=== PATIENT | male | born 1940 | race Caucasian/White ===

== ENCOUNTER → 2018-09-20 11:04 | Outpatient (CLI) | payer MEDICARE, SELFPAY ==
[2018-09-20 11:54] LABS: BUN Creatinine Ratio 14.7 (6-22); Blood Urea Nitrogen 25 mg/dL (9-20); Calcium 9.1 mg/dL (8.4-10.2); Carbon Dioxide 25 mmol/L (22-32); Chloride 108 mmol/L (98-107); Cholesterol 163 mg/dL (140-199); Estimated Glomerular Filt Rate 39.2 mL/min (>60); Glucose 91 mg/dL (80-110); HDL Cholesterol 54 mg/dL (40-60); HEMOLYSIS < 15 (0-50); LDL Cholesterol Calculated 94 mg/dL (<100); Sodium 142 mmol/L (137-145); Triglycerides 73 mg/dL (35-150)
[2018-09-21 14:25] LABS: Parathyroid Hormone Int 59 pg/mL (14-64)
== END ==
PROVIDERS: PCP Internal Medicine; Visit Provider Internal Medicine
DX: I10 Essential (primary) hypertension (principal); E21.0 Primary hyperparathyroidism; Z00.00 Encounter for general adult medical examination without abnormal findings
CPT/HCPCS: 36415; 80048; 80061; 83970

== ENCOUNTER → 2019-10-06 14:58 | Outpatient (ROUT) | payer MEDICARE, SELFPAY ==
[2019-10-06 15:24] LABS: BUN Creatinine Ratio 15.3 (6-22); Blood Urea Nitrogen 23 mg/dL (9-20); Calcium 9.4 mg/dL (8.4-10.2); Carbon Dioxide 27 mmol/L (22-32); Chloride 103 mmol/L (98-107); Estimated Glomerular Filt Rate 45.1 mL/min (>60); Glucose 80 mg/dL (80-110); HEMOLYSIS < 15 (0-50); Potassium 4.7 mmol/L (3.4-5.1); Sodium 139 mmol/L (137-145)
== END ==
PROVIDERS: PCP Internal Medicine; Visit Provider Internal Medicine
DX: I10 Essential (primary) hypertension (principal)
CPT/HCPCS: 80048

== ENCOUNTER → 2019-11-03 14:38 | Outpatient (CLI) | payer MEDICARE, SELFPAY ==
--- NOTE | 2019-11-03 | DI.RAD.S_ITS ---
PROCEDURE: XR HIP W PEL IF DONE LT 2V INDICATIONS: S/P LEFT HIP ARTHROPLASTY FOLLOW UP TECHNIQUE: AP pelvis with lateral view(s) of the left hip(s). COMPARISON: [facility] JAVAD Soares, XR PELVIS WITH LATERAL HIP LEFT, 12/15/2017, 13:31. [facility] JAVAD Soares, XR FEMUR 2+ VIEWS LEFT, 12/15/2017, 13:36. FINDINGS: Bones: No fractures or dislocations. Pelvic ring appears intact. No suspicious bony lesions. There is elevation left hip arthroplasty with prosthesis in anatomic alignment. Old healed internally fixed left femoral shaft fracture is noted. There is discectomy and fusion at L4-L5. Soft tissues: The visualized bowel gas pattern is normal. No suspicious soft tissue calcifications. IMPRESSION: 1. Revision left hip arthroplasty with prosthesis in anatomic alignment. 2. Old healed femoral shaft fracture with internal fixation. Dictated by: Stephen Osuna M.D. on 11/03/2019 at 17:39 Approved by: Stephen Osuna M.D. on 11/03/2019 at 17:42
== END ==
PROVIDERS: PCP Internal Medicine
DX: Z09 Encounter for follow-up examination after completed treatment for conditions other than malignant neoplasm (principal); Z96.642 Presence of left artificial hip joint
CPT/HCPCS: 73502

== ENCOUNTER → 2019-11-09 10:35 | Outpatient (CLI) | payer MEDICARE, SELFPAY ==
[2019-11-09 12:04] LABS: Erythrocyte Sedimentation Rate 35 MM/HR (0-15)
[2019-11-09 12:29] LABS: C-Reactive Protein Quant 6.3 mg/dL (<1.0)
== END ==
PROVIDERS: PCP Internal Medicine; Referring Provider Orthopaedic Surgery; Visit Provider Orthopaedic Surgery
DX: Z96.649 Presence of unspecified artificial hip joint (principal); V43.64XA Car passenger injured in collision with van in traffic accident, initial encounter
CPT/HCPCS: 36415; 85651; 86140

== ENCOUNTER → 2019-11-17 11:40 | Outpatient (CLI) | payer MEDICARE, SELFPAY ==
[2019-11-17 13:11] LABS: C-Reactive Protein Quant 2.2 mg/dL (<1.0)
[2019-11-17 13:56] LABS: Erythrocyte Sedimentation Rate 46 MM/HR (0-15)
== END ==
PROVIDERS: PCP Internal Medicine; Referring Provider Orthopaedic Surgery; Visit Provider Orthopaedic Surgery
DX: Z96.649 Presence of unspecified artificial hip joint (principal)
CPT/HCPCS: 36415; 85651; 86140

== ENCOUNTER → 2019-11-20 08:28 | Outpatient (CLI) | payer MEDICARE, SELFPAY ==
--- NOTE | 2019-11-20 | DI.MRI.S_ITS ---
PROCEDURE: MR LUMBAR SPINE WO CON INDICATIONS: Low back pain TECHNIQUE: Noncontrast sagittal T1 spin echo and T2 fast echo, sagittal STIR, axial T1 and T2 fast spin echo through the lumbar spine. In cases with scoliosis, additional coronal T2 fast spin echo may be performed. COMPARISON: [facility], , L-SPINE WITHOUT CONTRAST, 09/30/2016, 12:42. FINDINGS: Image quality: Excellent. Alignment and Curvature: Interval multilevel posterior lateral travis and pedicle screw fixation spanning L3-L5 with bilateral pedicle screws in place at all levels and interbody fusion material. Trace degenerative anterolisthesis of L5 on S1. Mild stable degenerative retrolisthesis of L2 on L3 measuring 6 mm. Bone Marrow: Marrow is of normal overall signal. No acute vertebral body compression fractures. Spinal Cord: Conus medullaris terminates at the top of L1 level. Visualized cord demonstrates normal signal and size. Paraspinous Soft Tissues: No paravertebral masses. T12-L1: No canal stenosis or foraminal stenosis. L1-L2: Mild disc height loss. Mild disc bulge. Mild facet hypertrophy. No canal stenosis. Mild to moderate right foraminal stenosis. L2-L3: Unchanged. Mild retrolisthesis of L2 on L3. Minimal disc bulge. Facet and ligament hypertrophy. Mild to moderate canal stenosis. Mild to moderate right foraminal narrowing and mild left foraminal narrowing. L3-L4: Left laminectomy and posterior lateral fusion. Left laminectomy appears to be widened compared to the previous study. Resolution of canal stenosis. Mild right foraminal narrowing. L4-L5: Left laminectomy and posterior lateral fusion. Left laminectomy appears to be widened compared to the previous study. No canal stenosis. Moderate right foraminal narrowing with flattening deformity on the exiting right L4 nerve root. No left foraminal narrowing. L5-S1: Bilateral facet hypertrophy. No canal stenosis or foraminal stenosis. IMPRESSION: 1. Interval L3-L5 fusion with resolution of canal stenosis at L3-L4 and L4-L5. 2. Unchanged mild to moderate canal stenosis at L2-L3. 3. Moderate right foraminal narrowing at L4-L5. Dictated by: Dano Phan M.D. on 11/21/2019 at 9:23 Approved by: Dano Phan M.D. on 11/21/2019 at 9:33
== END ==
PROVIDERS: PCP Internal Medicine; Referring Provider Internal Medicine; Visit Provider Orthopaedic Surgery
DX: M54.5 Low back pain (principal); M48.061 Spinal stenosis, lumbar region without neurogenic claudication; Z98.1 Arthrodesis status
CPT/HCPCS: 72148

== ENCOUNTER → 2020-04-04 10:28 | Outpatient (CLI) | payer MEDICARE, SELFPAY ==
[2020-04-04 11:49] LABS: BUN Creatinine Ratio 15.4 (6-22); Blood Urea Nitrogen 23 mg/dL (9-20); Carbon Dioxide 27 mmol/L (22-32); Chloride 106 mmol/L (98-107); Cholesterol 152 mg/dL (140-199); Estimated Glomerular Filt Rate 45.5 mL/min (>60); Glucose 88 mg/dL (80-110); HDL Cholesterol 39 mg/dL (40-60); HEMOLYSIS < 15 (0-50); LDL Cholesterol Calculated 96 mg/dL (<100); Sodium 139 mmol/L (137-145); Triglycerides 83 mg/dL (35-150)
[2020-04-05 08:12] LABS: PSA Free % 46.7 % (.); PSA, Total 0.9 ng/mL (0.0-4.0)
== END ==
PROVIDERS: PCP Internal Medicine; Referring Provider Internal Medicine; Visit Provider Internal Medicine
DX: Z12.5 Encounter for screening for malignant neoplasm of prostate (principal); I10 Essential (primary) hypertension; E78.5 Hyperlipidemia, unspecified
CPT/HCPCS: 36415; 80048; 80061; 84153; 84154

== ENCOUNTER → 2020-10-11 12:30 | Outpatient (CLI) | payer MEDICARE, SELFPAY ==
[2020-10-11] MEDS: COVID-19 VACC #1, MRNA(MOD) 100 MCG/0.5 ML VIAL IM (12:41)
== END ==
PROVIDERS: PCP Internal Medicine; Visit Provider Internal Medicine
DX: Z23 Encounter for immunization (principal)
CPT/HCPCS: 0011A; 91301

== ENCOUNTER → 2020-11-08 12:10 | Outpatient (CLI) | payer MEDICARE, SELFPAY ==
[2020-11-08] MEDS: COVID-19 VACC #2, MRNA(MOD) 100 MCG/0.5 ML VIAL IM (12:19)
== END ==
PROVIDERS: PCP Internal Medicine; Visit Provider Internal Medicine
DX: Z23 Encounter for immunization (principal)
CPT/HCPCS: 0012A; 91301

== ENCOUNTER 2022-12-18 19:40 | Emergency (ER) | payer MEDICARE, SELFPAY ==
[2022-12-18] VITALS (16 sets, daily range): BP systolic 177–222; BP diastolic 89–114; PULSE 56–67; RESP 14–29; TEMP 35.9; O2SAT 97–99; BMI 25.1
--- NOTE | 2022-12-18 22:57 | ED_ITS ---
HPI - General Adult General Chief complaint: Hypertension Stated complaint: elevated BP Time Seen by Provider: 12/18/22 22:14 Source: patient and EMS Mode of arrival: EMS History of Present Illness HPI narrative: 82-year-old gentleman with a history of controlled hypertension and kidney cancer post nephrectomycomes in with concerns for asymptomatic hypertension. He states that he had some moderate stomach cramping earlier this evening, took some Tums the stomach ache resolved. after a bowel movement in the emergency department the stomach cramps are completely gone. While he was having the cramping, he took his blood pressure is usual and noted that it was elevated at 2 100/100 with no chest pain, dyspnea, nausea, vomiting, acute neurologic signs. Comes in for further evaluation of his blood pressure. Denies chest pa in, palpitations, dyspnea, orthopnea, headache, paresthesias beyond his baseline left lower extremity paresthesia after spinal surgery. Related Data Home Medications Medication Instructions Recorded Confirmed acetaminophen 500 mg tablet 500 mg PO Q6HP PRN ##0 01/19/13 cholecalciferol (vitamin D3) 50 2,000 unit PO QDAY ##0 04/13/17 mcg (2,000 unit) capsule (Vitamin D3) cyclobenzaprine 10 mg tablet 10 mg PO HS PRN ##0 04/13/17 omega 4-edv-sct-fish oil 1,000 mg mg PO QDAY ##0 04/13/17 (120 mg-180 mg) capsule (Fish Oil) tramadol 50 mg tablet 50 mg PO PRN ##0 04/13/17 omeprazole 20 mg capsule,delayed 20 mg PO PRN PRN ##0 04/22/17 release Previous Rx's Medication Instructions Recorded hydroxyzine pamoate 25 mg capsule 1 - 2 cap PO Q6HP PRN #40 caps 04/25/17 (Vistaril) oxycodone 5 mg tablet 1 - 2 tab PO Q4HP PRN #60 tabs 04/25/17 polyethylene glycol 3350 17 gram 17 gm PO BIDP PRN ##1 04/25/17 oral powder packet (Miralax) Review of Systems Review of Systems Narrative: Pertinent positive and negative findings as per HPI Patient History Medical History Hypertension Renal cell cancer Spinal stenosis Social History Smoking Status: Never smoker Smoking Status: Never smoker Substance Use Type: does not use Exam Initial Vital Signs Initial Vital Signs: Vital Signs Temperature 96.6 F L 12/18/22 19:40 Pulse Rate 58 L 12/18/22 19:40 Respiratory Rate 14 12/18/22 19:40 Blood Pressure 212/100 H 12/18/22 19:40 Pulse Oximetry 97 12/18/22 19:40 Oxygen Delivery Method Room Air 12/18/22 19:40 General: Healthy appearing, in no acute distress. Able to give a complete and coherent history. Well-nourished well-developed HEENT: Moist mucous membranes, normal sclera with reactive pupils, Neck: No JVD, supple Respiratory: Lungs are clear to auscultation, no wheezing no rales no rhonchi. Full and symmetrical air movement Cardiac: Regular rate and rhythm no murmurs no bruits Abdomen: Soft, nontender, good bowel tones, no flank pain Skin: Warm and dry, multiple actinic keratoses Neurologic: Grossly neurologically intact with no obvious asymmetries or abnormalities Extremities: No trauma, well perfused Psych: Cooperative, appropriate insight and affect Course Orders Ordered: ED Orders 12/18/22 20:02 EKG-12 Lead Stat Vital Signs Vital signs: Vital Signs - 8 hr 12/18/22 19:40 12/18/22 19:43 12/18/22 19:44 Temperature 96.6 F L Pulse Rate 58 L 62 Respiratory Rate 14 Blood Pressure 212/100 H 212/100 H Pulse Oximetry 97 97 Oxygen Delivery Method Room Air 12/18/22 19:44 12/18/22 20:00 12/18/22 20:01 Temperature Pulse Rate 61 57 L Respiratory Rate Blood Pressure 186/92 H Pulse Oximetry 98 97 Oxygen Delivery Method 12/18/22 20:01 12/18/22 20:30 12/18/22 20:30 Temperature Pulse Rate 58 L 58 L Respiratory Rate Blood Pressure 182/93 H Pulse Oximetry 97 97 Oxygen Delivery Method 12/18/22 21:00 12/18/22 21:00 12/18/22 21:30 Temperature Pulse Rate 56 L Respiratory Rate Blood Pressure 188/91 H 177/89 H Pulse Oximetry 98 Oxygen Delivery Method 12/18/22 21:30 Temperature Pulse Rate 56 L Respiratory Rate Blood Pressure Pulse Oximetry 98 Oxygen Delivery Method Medical Decision Making MDM Narrative Medical decision making narrative: CC:Presents with asymptomatic hypertension this is an acute finding, uncertain prognosis Complicating co-morbidities: hypertension usually moderate controlled with Coreg at 6.25 BID Data collected from: patient, Social determinants of health that may influence the patients condition: primary caregiver for his with for us of dementia Medical records reviewed: medical records are not available for review Differential considered: primary hypertension, secondary hypertension related to abdominal cramping, hypertensive crisis, heart failure, acute coronary syndrome, stroke or TIA Exam documented above, pertinent findings include: entirely benign exam. Abdominal cramping has entirely resolved after a bowel movement. EKG today shows sinus rhythm at a rate of 63. Right axis deviation at 165. No significant ischemic findings are appreciated Discussion: 82-year-old gentleman with abdominal cramping that likely was related to need to have a bowel movement since resolved. While he was hurting did take his blood pressure noticed that it was elevated. It has remained somewhat elevated in the emergency department but he has not taken his evening Coreg. Typically blood pressures are in the 150 systolic range. Does have a follow-up appointment with his primary care doctor next week. At this time there is no evidence of any significant pathology. We discussed the importance of not dramatically changing blood pressures in the emergency department. Was given 12.5 mg, a double dose, of Coreg this evening prior to discharge. With is otherwise completely benign exam no additional workup was felt to be appropriate. Encouraged him to keep track of blood pressures daily and review numbers with his primary care provider next week at his well exam visit. Discharge Plan Departure Patient Disposition: Home Clinical Impression: Hypertension Qualifiers: Hypertension type: primary hypertension Qualified Code(s): I10 - Essential (primary) hypertension Instructions: DI for High Blood Pressure Activity Restrictions/Additional Instructions: Thank you for coming in today your blood pressure was elevated in the emergency department today. I am wondering if this was related to the abdominal cramping that is now resolved. We discussed the fact that aggressive treatment of asymptomatic hypertension in the emergency department can actually cause more problems than benefits. In light of that, I gave you your evening dose of Coreg at a slightly higher dose, 12.5 mg. I believe it is safe for you to go home this evening. After tomorrow's morning dose of Coreg, I would like you to check your blood pressure and begin keeping a log of daily numbers. Please review this with your primary care doctor when you see them next week. Reasons to return to the emergency department in the setting of high blood pressure include elevated blood pressure with associated symptoms. Associated symptoms could include things like severe headache, confusion, difficulty finding words, numbness or tingling, chest pain, palpitations, shortness of tiffanie ath. If the number itself is simply elevated but you feel well, please keep track of the number but follow-up with your outpatient provider. Prescriptions: No Action acetaminophen 500 MG tablet 500 mg PO Q6HP PRNQty: 0 cholecalciferol (vitamin D3) [Vitamin D3] 2,000 UNIT capsule 2,000 unit PO QDAY Qty: 0 omega 5-rpo-vdd-fish oil [Fish Oil] 1,000 MG capsule PO QDAY Qty: 0 cyclobenzaprine 10 MG tablet 10 mg PO HS PRNQty: 0 tramadol 50 MG tablet 50 mg PO PRNQty: 0 omeprazole 20 MG capsule,delayed release(DR/EC) 20 mg PO PRN PRNQty: 0 polyethylene glycol 3350 [Miralax] 17 GM powder in packet 17 gm PO BIDP PRNQty: 1 0RF oxycodone 5 MG tablet 1 - 2 tab PO Q4HP PRNQty: 60 0RF hydroxyzine pamoate [Vistaril] 25 MG capsule 1 - 2 cap PO Q6HP PRNQty: 40 0RF Stand Alone Forms: Patient Portal/API
[2022-12-18] MEDS: carvediloL 12.5 MG TABLET PO (23:52)
== END 2022-12-18 23:59 | disposition home or self-care (01) ==
PROVIDERS: Emergency Provider Emergency Medicine
DX: I10 Essential (primary) hypertension (principal); R07.9 Chest pain, unspecified
CPT/HCPCS: 93005; 99283

== ENCOUNTER → 2024-01-13 15:47 | Outpatient (ROUT) | payer MEDICARE, SELFPAY | PROVIDERS: Visit Provider Dermatology | DX: Z48.817 Encounter for surgical aftercare following surgery on the skin and subcutaneous tissue (principal) | CPT/HCPCS: 87070; 87075; 87205 ==

== ENCOUNTER → 2025-06-17 09:04 | Outpatient (CLI) | payer MEDICARE, OTHER, SELFPAY ==
--- NOTE | 2025-06-17 09:06 | DI.MRI.S_ITS ---
PROCEDURE: MR THORACIC SPINE WO CON INDICATIONS: RULE OUT STENOSIS TECHNIQUE: Noncontrast sagittal T1 spine echo and T2 fast spin echo, sagittal STIR, and T2 fast spin echo through the thoracic spine. COMPARISON: None. FINDINGS: Image quality: Excellent. Alignment and Curvature: There is normal bony alignment. Bone Marrow: Marrow is of normal overall signal. No acute vertebral body compression fractures. Spinal Cord: Visualized spinal cord is normal in size and signal. Paraspinous Soft Tissues: No paravertebral masses. Miscellaneous: On axial images, central canal and foramina appear widely patent at all scanned levels. IMPRESSION: Unremarkable MR thoracic spine Approved by: Fernandez Reid M.D. on 06/19/2025 at 17:49
== END ==
PROVIDERS: PCP Internal Medicine; Referring Provider Pain Medicine Pain Medicine; Visit Provider Pain Medicine Pain Medicine
DX: M96.1 Postlaminectomy syndrome, not elsewhere classified (principal)
CPT/HCPCS: 72146